=== PATIENT | male | born 1960 | race Caucasian/White ===

== ENCOUNTER 2016-09-23 06:31 | Outpatient (CLI) | payer BC, OTHER ==
[~2016-09-23] VITALS: Ht 185.4 cm; Wt 104.3 kg
[~2016-09-23 06:31] MED LIST: LISI-538 PO; SIMV20TA2 PO; VITA-112 PO
[2016-09-23] MEDS ORDERED: NS 1,000 ML IV SCH (07:00)
[2016-09-23] MEDS ORDERED: PROPOFOL 500 MG/50 ML VIAL As Ordered ONE (07:45)
[2016-09-23] MEDS ORDERED: LIDOCAINE 2% INJ 100 MG/5 ML SDV (FOR ANES.) As Ordered ONE (07:47)
--- NOTE | 2016-09-23 08:12 | ROOR ---
Patient Name: Jagdish Luna Procedure Date: 09/23/2016 7:29 AM Date of : 1960 Age: 55 Room: [facility] Gender: Male Note Status: Finalized Procedure: Colonoscopy Indications: High risk colon cancer surveillance: Personal history of colonic polyps Providers: Arian Bryant MD Referring MD: ANTELMO JULIAN MD Requesting Provider: Medicines: Monitored Anesthesia Care Complications: No immediate complications. Procedure: Pre-Anesthesia Assessment: - Prior to the procedure, a History and Physical was performed, and patient medications and allergies were reviewed. The patient is competent. The risks and benefits of the procedure and the sedation options and risks were discussed with the patient. All questions were answered and informed consent was obtained. Patient identification and proposed procedure were verified by the physician, the nurse and the worsted winder in the pre-procedure area in the procedure room. Mental Status Examination: alert and oriented. Airway Examination: normal oropharyngeal airway and neck mobility. Respiratory Examination: clear to auscultation. CV Examination: normal. Prophylactic Antibiotics: The patient does not require prophylactic antibiotics. Prior Anticoagulants: The patient has taken no previous anticoagulant or antiplatelet agents. ASA Grade Assessment: II - A patient with mild systemic disease. After reviewing the risks and benefits, the patient was deemed in satisfactory condition to undergo the procedure. The anesthesia plan was to use monitored anesthesia care (MAC). Immediately prior to administration of medications, the patient was re-assessed for adequacy to receive sedatives. The heart rate, respiratory rate, oxygen saturations, blood pressure, adequacy of pulmonary ventilation, and response to care were monitored throughout the procedure. The physical status of the patient was re-assessed after the procedure. The Colonoscope was introduced through the anus and advanced to the cecum, identified by appendiceal orifice and ileocecal valve. The colonoscopy was performed without difficulty. The patient tolerated the procedure well. The quality of the bowel preparation was good. Findings: The perianal exam findings include non-thrombosed external hemorrhoids and non-thrombosed internal hemorrhoids. Multiple small-mouthed diverticula were found in the sigmoid colon and descending colon. A diminutive polyp was found in the rectum. The polyp was flat. The polyp was removed with a jumbo cold forceps. Resection and retrieval were complete. Estimated blood loss was minimal. No additional abnormalities were found on retroflexion. Impression: - Non-thrombosed external hemorrhoids and non-thrombosed internal hemorrhoids found on perianal exam. - Diverticulosis in the sigmoid colon and in the descending colon. - One diminutive polyp in the rectum, removed with a jumbo cold forceps. Resected and retrieved. Recommendation: - Discharge patient to home (ambulatory). - High fiber diet indefinitely. - Repeat colonoscopy in 5 years for surveillance. - Telephone my office for pathology results in 2 weeks. Arian Bryant MD Arian Bryant MD 09/23/2016 8:11:59 AM This report has been signed electronically. Number of Addenda: 0 Note Initiated On: 09/23/2016 7:29 AM Estimated Blood Loss: Estimated blood loss was minimal.
[2016-09-23 08:25] VITALS: BP 115/53
== END 2016-09-23 08:35 | disposition home or self-care (01) ==
LOC: M OPP 06:31
PROVIDERS: ATTEND Surgery
DX: Z12.11 Encounter for screening for malignant neoplasm of colon (principal); K62.1 Rectal polyp; K64.8 Other hemorrhoids; K64.4 Residual hemorrhoidal skin tags; K57.30 Diverticulosis of large intestine without perforation or abscess without bleeding; Z86.010 Personal history of colon polyps; I10 Essential (primary) hypertension; E78.5 Hyperlipidemia, unspecified; M19.90 Unspecified osteoarthritis, unspecified site; G47.30 Sleep apnea, unspecified; R06.83 Snoring; Z87.891 Personal history of nicotine dependence; Z79.899 Other long term (current) drug therapy; Z80.0 Family history of malignant neoplasm of digestive organs